=== PATIENT | male | born 1980 | race Two or more races ===

== ENCOUNTER 2019-10-19 14:24 | Inpatient (IN) | payer MEDICAID, OTHER ==
[~2019-10-19] VITALS: Ht 193 cm; Wt 83.2 kg
[2019-10-19] MEDS ORDERED: DIVA125T32 PO (15:48)
[2019-10-19 16:10] LABS: BASOPHILS % (AUTO) 0.4 % (0.0-2.0); EOSINOPHILS % (AUTO) 0.4 % (1.0-6.0); HEMATOCRIT 41.8 % (41-53); LYMPHOCYTES # (AUTO) 1.3 K/uL (1.0-4.8); LYMPHOCYTES % (AUTO) 17.7 % (22.0-44.0); MEAN CORPUSCULAR HEMOGLOBIN 31.2 pg (26.0-34.0); MEAN CORPUSCULAR HGB CONC 33.5 G/dL (31.0-37.0); MEAN CORPUSCULAR VOLUME 93 fL (80-100); MONOCYTES # (AUTO) 0.6 K/uL (0.1-1.0); MONOCYTES % (AUTO) 7.7 % (2.0-9.0); NEUTROPHILS # (AUTO) 5.5 K/uL (1.8-7.7); NEUTROPHILS % (AUTO) 73.8 % (40.0-70.0); PLATELET COUNT (AUTO) 282 K/uL (150-450); RED BLOOD CELL COUNT(AUTO) 4.48 MIL/uL (4.50-5.90); RED CELL DISTRIBUTION WIDTH 13.5 % (11.5-14.5)
[2019-10-19 16:21] LABS: ANION GAP 11 mmol/L (8-16); CARBON DIOXIDE 25 mmol/L (22-29); CHLORIDE 104 mmol/L (98-107); GLOMERULAR FILTR. RATE CALC > 60 mL/min (>60); GLUCOSE,RANDOM 102 mg/dL (70-110); POTASSIUM 4.1 mmol/L (3.5-5.1); SODIUM SERUM 140 mmol/L (136-145); UREA NITROGEN, BLOOD 18 mg/dL (7-18)
[2019-10-19 16:27] LABS: ALANINE AMINOTRANSFERASE 46 U/L (12-78); ALBUMIN 3.6 g/dL (3.4-5.0); ALKALINE PHOSPHATASE 50 U/L (46-116); ASPARTATE AMINOTRANSFERASE 25 U/L (15-37); BILIRUBIN,TOTAL 0.5 mg/dL (0.1-1.0)
[2019-10-19] MEDS ORDERED: ZOLPIDEM TARTRATE 10 MG TABLET PO PRN (16:45)
[2019-10-19 17:49] LABS: AMPHET/METH SCREEN,URINE POSITIVE (NEGATIVE); BARBITURATE SCREEN, URINE NEGATIVE (NEGATIVE); BENZODIAZEPINES SCREEN,URINE NEGATIVE (NEGATIVE); CANNABINOID SCREEN,URINE NEGATIVE (NEGATIVE); COCAINE SCREEN,URINE NEGATIVE (NEGATIVE); METHADONE SCREEN, URINE NEGATIVE (NEGATIVE); OPIATE SCREEN,URINE NEGATIVE (NEGATIVE); PHENCYCLIDINE SCREEN,URINE NEGATIVE (NEGATIVE)
[2019-10-19] MEDS ORDERED: DiphenhydrAMINE HCL 50 MG/ML VIAL ONE (18:19)
[2019-10-19] MEDS ORDERED: HALOPERIDOL LACTATE 5 MG/ML VIAL ONE (18:20)
[2019-10-19] MEDS ORDERED: LORazepam 2 MG/ML VIAL ONE (18:20)
[2019-10-19] MEDS ORDERED: DiphenhydrAMINE HCL 50 MG/ML VIAL IM ONE (18:30)
[2019-10-19] MEDS ORDERED: LORazepam 2 MG/ML VIAL IM ONE (18:30)
[2019-10-19] MEDS ORDERED: HALOPERIDOL LACTATE 5 MG/ML VIAL IM ONE (18:30)
[2019-10-19 19:34] VITALS: BP 115/65
[2019-10-20 08:19] LABS: CHOL/HDL RATIO 2.5 (4.2-7.3); FREE T4 (FREE THYROXINE) 1.14 ng/dL (0.76-1.46); THYROID STIMULATING HORMONE 0.65 uIU/mL (0.36-3.74)
[2019-10-20 08:26] VITALS: BP 112/61
[2019-10-20] MEDS ORDERED: DOCUSATE SODIUM 100 MG CAPSULE PO PRN (13:15)
[2019-10-20] MEDS ORDERED: ACETAMINOPHEN 325 MG TABLET PO PRN (13:15)
[2019-10-20] MEDS ORDERED: CloNIDine HCL 0.1 MG TABLET PO PRN (13:15)
[2019-10-20] MEDS ORDERED: OMEPRAZOLE 20 MG CAPSULE PO PRN (13:15)
[2019-10-20] MEDS ORDERED: BACITRACIN 28.4 GM OINTMENT TP PRN (13:15)
[2019-10-20] MEDS ORDERED: PETROLATUM,WHITE 28 GM JELLY TP PRN (13:15)
[2019-10-20] MEDS ORDERED: MAGNESIUM HYDROXIDE SUSPENSION 30 ML UDCUP PO PRN (13:15)
[2019-10-20] MEDS ORDERED: MAG HYDROX/AL HYDROX/SIMETH ES 30 ML SUSPENSION UDCUP PO PRN (13:15)
[2019-10-20] MEDS ORDERED: ONDANSETRON HCL 4 MG TABLET PO PRN (13:15)
[2019-10-20] MEDS ORDERED: LOPERAMIDE HCL 2 MG CAPSULE PO PRN (13:15)
[2019-10-20] MEDS ORDERED: BENZOCAINE/MENTHOL LOZENGE MM PRN (13:15)
[2019-10-20] MEDS ORDERED: ALBUTEROL SULFATE HFA 90 MCG/PUFF 8 GM INHALER IH PRN (13:15)
[2019-10-20 16:04] VITALS: BP 128/80
[2019-10-20] MEDS: DIVALPROEX SODIUM 500 MG DR TABLET PO SCH (20:24)
[2019-10-20] MEDS: QUEtiapine FUMARATE 200 MG TABLET PO SCH (20:24)
[2019-10-21 06:25] VITALS: BP 108/65
[2019-10-21 08:05] VITALS: BP 121/73
[2019-10-21 16:00] VITALS: BP 126/74
[2019-10-21] MEDS: QUEtiapine FUMARATE 200 MG TABLET PO SCH (20:17)
[2019-10-21] MEDS: DIVALPROEX SODIUM 500 MG DR TABLET PO SCH (20:17)
[2019-10-22 06:04] VITALS: BP 132/72
[2019-10-22 08:15] VITALS: BP 124/65
[2019-10-22 16:00] VITALS: BP 132/77
[2019-10-22 17:00] VITALS: BP 135/80
[2019-10-22] MEDS: IBUPROFEN 600 MG TABLET PO PRN (17:09)
[2019-10-22 21:10] VITALS: BP 137/66
[2019-10-22] MEDS: DIVALPROEX SODIUM 500 MG DR TABLET PO SCH (21:11)
[2019-10-22] MEDS: QUEtiapine FUMARATE 200 MG TABLET PO SCH (21:11)
[2019-10-23 05:31] VITALS: BP 125/78
[2019-10-23] MEDS: SULFAMETHOX/TRIMETH DS 800-160 MG/TABLET PO SCH ×2 (08:16→16:47)
[2019-10-23] MEDS: CEPHALEXIN MONOHYDRATE 500 MG CAPSULE PO SCH ×4 (08:16→20:34)
[2019-10-23] MEDS: IBUPROFEN 600 MG TABLET PO PRN (11:00)
[2019-10-23 16:07] VITALS: BP 147/78
[2019-10-23 16:08] VITALS: BP 122/75
[2019-10-23] MEDS: QUEtiapine FUMARATE 200 MG TABLET PO SCH (20:34)
[2019-10-23] MEDS: DIVALPROEX SODIUM 500 MG DR TABLET PO SCH (20:34)
[2019-10-24 06:34] VITALS: BP 117/72
[2019-10-24] MEDS: IBUPROFEN 600 MG TABLET PO PRN ×2 (06:55→17:02)
[2019-10-24] MEDS: SULFAMETHOX/TRIMETH DS 800-160 MG/TABLET PO SCH ×2 (08:44→17:02)
[2019-10-24] MEDS: CEPHALEXIN MONOHYDRATE 500 MG CAPSULE PO SCH ×4 (08:44→21:14)
[2019-10-24 09:45] VITALS: BP 131/77
[2019-10-24 09:48] VITALS: BP 113/67
[2019-10-24 16:07] VITALS: BP 104/58
[2019-10-24] MEDS: LORazepam 2 MG TABLET PO PRN (19:09)
[2019-10-24] MEDS: DIVALPROEX SODIUM 500 MG DR TABLET PO SCH (21:14)
[2019-10-24] MEDS: QUEtiapine FUMARATE 200 MG TABLET PO SCH (21:14)
[2019-10-25 06:45] VITALS: BP 120/67
[2019-10-25 08:15] VITALS: BP 120/72
[2019-10-25] MEDS: SULFAMETHOX/TRIMETH DS 800-160 MG/TABLET PO SCH ×2 (08:51→17:03)
[2019-10-25] MEDS: CEPHALEXIN MONOHYDRATE 500 MG CAPSULE PO SCH ×4 (08:51→22:05)
[2019-10-25] MEDS: BuPROPion HCL XL 150 MG ER TABLET PO SCH (14:23)
[2019-10-25 16:49] VITALS: BP 144/89
[2019-10-25] MEDS: DIVALPROEX SODIUM 500 MG DR TABLET PO SCH (22:05)
[2019-10-25] MEDS: QUEtiapine FUMARATE 200 MG TABLET PO SCH (22:05)
[2019-10-26 07:03] VITALS: BP 132/78
[2019-10-26 08:22] VITALS: BP 116/65
[2019-10-26] MEDS: CEPHALEXIN MONOHYDRATE 500 MG CAPSULE PO SCH ×4 (09:02→20:52)
[2019-10-26] MEDS: SULFAMETHOX/TRIMETH DS 800-160 MG/TABLET PO SCH ×2 (09:02→16:08)
[2019-10-26] MEDS: BuPROPion HCL XL 150 MG ER TABLET PO SCH (09:02)
[2019-10-26 16:04] VITALS: BP 118/68
[2019-10-26] MEDS: DIVALPROEX SODIUM 500 MG DR TABLET PO SCH (20:52)
[2019-10-26] MEDS: QUEtiapine FUMARATE 200 MG TABLET PO SCH (20:52)
[2019-10-27 05:02] VITALS: BP 121/79
[2019-10-27 08:32] VITALS: BP 114/61
[2019-10-27] MEDS: CEPHALEXIN MONOHYDRATE 500 MG CAPSULE PO SCH ×4 (09:08→20:21)
[2019-10-27] MEDS: BuPROPion HCL XL 150 MG ER TABLET PO SCH (09:08)
[2019-10-27] MEDS: SULFAMETHOX/TRIMETH DS 800-160 MG/TABLET PO SCH ×2 (09:08→16:46)
[2019-10-27 17:05] VITALS: BP 118/68
[2019-10-27] MEDS: QUEtiapine FUMARATE 200 MG TABLET PO SCH (20:20)
[2019-10-27] MEDS: DIVALPROEX SODIUM 500 MG DR TABLET PO SCH (20:20)
[2019-10-28 05:31] VITALS: BP 115/64
[2019-10-28] MEDS: CEPHALEXIN MONOHYDRATE 500 MG CAPSULE PO SCH ×4 (08:09→21:14)
[2019-10-28] MEDS: BuPROPion HCL XL 150 MG ER TABLET PO SCH (08:09)
[2019-10-28] MEDS: SULFAMETHOX/TRIMETH DS 800-160 MG/TABLET PO SCH ×2 (08:09→16:59)
[2019-10-28 08:48] VITALS: BP 116/63
[2019-10-28 16:07] VITALS: BP 121/73
[2019-10-28] MEDS: LORazepam 2 MG TABLET PO PRN (16:57)
[2019-10-28] MEDS: QUEtiapine FUMARATE 200 MG TABLET PO SCH (21:14)
[2019-10-28] MEDS: DIVALPROEX SODIUM 500 MG DR TABLET PO SCH (21:14)
[2019-10-29 05:11] VITALS: BP 106/70
[2019-10-29 08:06] VITALS: BP 116/76
[2019-10-29] MEDS: SULFAMETHOX/TRIMETH DS 800-160 MG/TABLET PO SCH ×2 (08:34→16:41)
[2019-10-29] MEDS: CEPHALEXIN MONOHYDRATE 500 MG CAPSULE PO SCH ×4 (08:34→21:03)
[2019-10-29] MEDS: BuPROPion HCL XL 150 MG ER TABLET PO SCH (08:34)
[2019-10-29 16:01] VITALS: BP 113/61
[2019-10-29] MEDS: LORazepam 2 MG TABLET PO PRN (16:41)
[2019-10-29] MEDS: QUEtiapine FUMARATE 200 MG TABLET PO SCH (21:03)
[2019-10-29] MEDS: DIVALPROEX SODIUM 500 MG DR TABLET PO SCH (21:03)
[2019-10-30 06:28] VITALS: BP 112/66
[2019-10-30 08:05] VITALS: BP 108/62
[2019-10-30] MEDS: CEPHALEXIN MONOHYDRATE 500 MG CAPSULE PO SCH ×4 (08:34→20:33)
[2019-10-30] MEDS: SULFAMETHOX/TRIMETH DS 800-160 MG/TABLET PO SCH ×2 (08:37→16:27)
[2019-10-30] MEDS: BuPROPion HCL XL 150 MG ER TABLET PO SCH (08:38)
[2019-10-30 16:18] VITALS: BP 117/64
[2019-10-30] MEDS: QUEtiapine FUMARATE 200 MG TABLET PO SCH (20:33)
[2019-10-30] MEDS: DIVALPROEX SODIUM 500 MG DR TABLET PO SCH (20:36)
[2019-10-31 04:27] VITALS: BP 100/60
[2019-10-31 08:05] VITALS: BP 111/60
[2019-10-31] MEDS: SULFAMETHOX/TRIMETH DS 800-160 MG/TABLET PO SCH ×2 (09:32→16:46)
[2019-10-31] MEDS: CEPHALEXIN MONOHYDRATE 500 MG CAPSULE PO SCH ×4 (09:32→20:50)
[2019-10-31] MEDS: BuPROPion HCL XL 150 MG ER TABLET PO SCH (09:32)
[2019-10-31 16:00] VITALS: BP 112/65
[2019-10-31] MEDS: QUEtiapine FUMARATE 200 MG TABLET PO SCH (20:49)
[2019-10-31] MEDS: DIVALPROEX SODIUM 500 MG DR TABLET PO SCH (20:50)
[2019-11-01 06:23] VITALS: BP 115/63
[2019-11-01 08:00] VITALS: BP 109/62
[2019-11-01] MEDS: BuPROPion HCL XL 150 MG ER TABLET PO SCH (08:30)
[2019-11-01] MEDS: SULFAMETHOX/TRIMETH DS 800-160 MG/TABLET PO SCH ×2 (08:30→16:13)
[2019-11-01] MEDS: CEPHALEXIN MONOHYDRATE 500 MG CAPSULE PO SCH ×4 (08:30→20:32)
[2019-11-01 16:04] VITALS: BP 123/74
[2019-11-01] MEDS: DIVALPROEX SODIUM 500 MG DR TABLET PO SCH (20:32)
[2019-11-01] MEDS: QUEtiapine FUMARATE 200 MG TABLET PO SCH (20:32)
[2019-11-02 06:41] VITALS: BP 132/76
[2019-11-02 08:09] VITALS: BP 122/68
[2019-11-02] MEDS: BuPROPion HCL XL 150 MG ER TABLET PO SCH (08:42)
[2019-11-02 16:13] VITALS: BP 118/73
[2019-11-02] MEDS: DIVALPROEX SODIUM 500 MG DR TABLET PO SCH (20:10)
[2019-11-02] MEDS: QUEtiapine FUMARATE 200 MG TABLET PO SCH (20:10)
[2019-11-03 00:27] VITALS: BP 116/73
[2019-11-03] MEDS: BuPROPion HCL XL 150 MG ER TABLET PO SCH (08:32)
[2019-11-03 08:50] VITALS: BP 106/62
[2019-11-03 16:32] VITALS: BP 113/71
[2019-11-03] MEDS: QUEtiapine FUMARATE 200 MG TABLET PO SCH (20:19)
[2019-11-03] MEDS: DIVALPROEX SODIUM 500 MG DR TABLET PO SCH (20:19)
[2019-11-03] MEDS: LORazepam 2 MG TABLET PO PRN (20:28)
[2019-11-04 05:40] VITALS: BP 111/70
[2019-11-04 07:45] VITALS: BP 116/63
[2019-11-04 08:05] VITALS: BP 116/63
[2019-11-04] MEDS: BuPROPion HCL XL 150 MG ER TABLET PO SCH (08:32)
[2019-11-04 16:07] VITALS: BP 123/84
[2019-11-04] MEDS: DIVALPROEX SODIUM 500 MG DR TABLET PO SCH (20:04)
[2019-11-04] MEDS: QUEtiapine FUMARATE 200 MG TABLET PO SCH (20:04)
[2019-11-05 08:00] VITALS: BP 112/68
[2019-11-05] MEDS: BuPROPion HCL XL 150 MG ER TABLET PO SCH (08:27)
[2019-11-05] MEDS: HALOPERIDOL 5 MG TABLET PO PRN (13:10)
[2019-11-05] MEDS ORDERED: ZOLPIDEM TARTRATE 10 MG TABLET PO PRN (15:15)
[2019-11-05 16:16] VITALS: BP 124/78
[2019-11-05] MEDS: QUEtiapine FUMARATE 200 MG TABLET PO SCH (20:07)
[2019-11-05] MEDS: DIVALPROEX SODIUM 500 MG DR TABLET PO SCH (20:07)
[2019-11-06 07:11] VITALS: BP 118/70
[2019-11-06] MEDS: BuPROPion HCL XL 150 MG ER TABLET PO SCH (08:48)
[2019-11-06 09:46] VITALS: BP 100/60
[2019-11-06 16:17] VITALS: BP 122/79
[2019-11-06] MEDS: DIVALPROEX SODIUM 500 MG DR TABLET PO SCH (21:03)
[2019-11-06] MEDS: QUEtiapine FUMARATE 200 MG TABLET PO SCH (21:03)
[2019-11-07 05:34] VITALS: BP 110/70
[2019-11-07 08:25] VITALS: BP 108/59
[2019-11-07] MEDS: BuPROPion HCL XL 150 MG ER TABLET PO SCH (08:32)
[2019-11-07] MEDS: HALOPERIDOL 5 MG TABLET PO PRN (12:42)
[2019-11-07 16:25] VITALS: BP 108/73
[2019-11-07] MEDS ORDERED: BUPR-93 PO (17:17)
[2019-11-07] MEDS ORDERED: DIVA500T52 PO (17:17)
[2019-11-07] MEDS ORDERED: QUET200T PO (17:17)
== END 2019-11-07 19:13 | disposition home or self-care (01) | DRG 750 ==
LOC: EMS 14:26 → B3A 17:04 → B2S 11-02 09:00
PROVIDERS: ADMIT Psychiatry & Neurology Psychiatry; ATTEND Psychiatry & Neurology Psychiatry
DX: F25.1 Schizoaffective disorder, depressive type (principal); R45.851 Suicidal ideations; Z59.0 Homelessness; F15.10 Other stimulant abuse, uncomplicated; Z71.51 Drug abuse counseling and surveillance of drug abuser; F17.200 Nicotine dependence, unspecified, uncomplicated; F43.10 Post-traumatic stress disorder, unspecified; G47.00 Insomnia, unspecified; I10 Essential (primary) hypertension; Z89.512 Acquired absence of left leg below knee
CPT/HCPCS: 84439; 84443; 96372; G0480; J1200; J1630; J2060

== ENCOUNTER 2019-10-22 19:00 | Emergency (ER) | payer MEDICAID, OTHER ==
[~2019-10-22] VITALS: Ht 193 cm; Wt 81.8 kg
[~2019-10-22 19:00] MED LIST: DIVA125T32 PO
[2019-10-22] MEDS ORDERED: LIDOCAINE/PF 1% 2 ML VIAL IM ONE (19:30)
[2019-10-22] MEDS ORDERED: CefTRIAXone SODIUM 1 GM/VIAL IM ONE (19:30)
[2019-10-22 20:38] VITALS: BP 108/55
== END 2019-10-22 20:42 | disposition home or self-care (01) ==
LOC: EMS 19:02
DX: L03.113 Cellulitis of right upper limb (principal); I10 Essential (primary) hypertension; F17.210 Nicotine dependence, cigarettes, uncomplicated; F12.90 Cannabis use, unspecified, uncomplicated; F19.90 Other psychoactive substance use, unspecified, uncomplicated; Z88.5 Allergy status to narcotic agent
CPT/HCPCS: 73090; 96372; 99283; J0696; J3490